=== PATIENT | male | born 1960 | race Caucasian/White ===

== ENCOUNTER 2019-03-15 10:22 | Emergency (ER) | payer BC, OTHER ==
[2019-03-15 10:59] VITALS: BP 130/70
--- NOTE | 2019-03-15 11:30 | UC ---
Throat Pain/Nasal Sai HPI - HPI Summary HPI Summary: cough x 1 week cough is harsh, productive at time with yellow sputum + nasal congest, pnd, x 2 week with sore throat sinus pain and pressure no fever, no chills , no body aches - History of Current Complaint Chief Complaint: UCGeneralIllness Stated Complaint: CHEST CONGESTION Time Seen by Provider: 03/15/19 11:18 Hx Obtained From: Patient Onset/Duration: Gradual Onset, Lasting Weeks - 2, Still Present Severity: Moderate Pain Intensity: 0 Cough: Productive Associated Signs & Symptoms: Positive: Sinus Discomfort, Nasal Discharge. Negative: Wheezing, Hoarseness, Fever, Vomiting, Rash - Allergies/Home Medications Allergies/Adverse Reactions: Allergies Allergy/AdvReac Type Severity Reaction Status Date / Time codeine Allergy Abdominal Verified 03/15/19 11:00 Pain Penicillins Allergy Unknown Verified 03/15/19 10:59 Reaction Details Home Medications: Home Medications Acetaminophen [Acetaminophen Extra Strength] 500 mg PO Q4HR PRN 03/15/19 [ History Confirmed 03/15/19] Aspirin TAB* [Aspirin 325 MG TAB*] 325 mg PO DAILY 03/15/19 [History Confirmed 03/15/19] Cholecalciferol (Vitamin D3) [Vitamin D3] 2,000 unit PO DAILY 03/15/19 [History Confirmed 03/15/19] Hydrochlorothiazide TAB* [Hydrodiuril TAB*] 25 mg PO DAILY 03/15/19 [History Confirmed 03/15/19] Lisinopril 40 mg PO DAILY 03/15/19 [History Confirmed 03/15/19] Multivitamin [Multivitamins] 1 cap PO DAILY 03/15/19 [History Confirmed 03/15/19 ] Pantoprazole Sodium 40 mg PO DAILY 03/15/19 [History Confirmed 03/15/19] Propafenone HCl 150 mg PO DAILY 03/15/19 [History Confirmed 03/15/19] Tramadol HCl [Ultram] 50 mg PO Q6HR PRN 03/15/19 [History Confirmed 03/15/19] dilTIAZem HCl [Diltiazem HCl ER] 240 mg PO DAILY 03/15/19 [History Confirmed 11/02] PMH/Surg Hx/FS Hx/Imm Hx Cardiovascular History: Hypertension, Atrial Fibrillation - Surgical History Surgical History: Yes Surgery Procedure, Year, and Place: left knee partial relacement, gallbladder removal, 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, Tonsilectomy as a child - Family History Known Family History: Positive: Hypertension - Social History Alcohol Use: Weekly Substance Use Type: None Smoking Status (MU): Never Smoked Tobacco Have You Smoked in the Last Year: No Review of Systems All Other Systems Reviewed And Are Negative: Yes Constitutional: Positive: Negative Skin: Positive: Negative Eyes: Positive: Negative ENT: Positive: Sore Throat, Nasal Discharge, Sinus Congestion, Sinus Pain/ Tenderness Respiratory: Positive: Cough Cardiovascular: Positive: Negative Is Patient Immunocompromised?: No Physical Exam Triage Information Reviewed: Yes Appearance: Well-Appearing, No Pain Distress, Well-Nourished Vital Signs: Initial Vital Signs Temp 98.1 F 03/15/19 10:54 Pulse 70 03/15/19 10:54 Resp 16 03/15/19 10:54 BP 130/70 03/15/19 10:54 Pulse Ox 97 03/15/19 10:54 Vital Signs Reviewed: Yes Eye Exam: Normal Eyes: Positive: Conjunctiva Clear ENT: Positive: Normal ENT inspection, Hearing grossly normal, Pharynx normal, Pharyngeal erythema Neck: Positive: Supple, Nontender, No Lymphadenopathy Respiratory: Positive: Chest non-tender, Lungs clear, Normal breath sounds Cardiovascular: Positive: RRR, No Murmur, Pulses Normal Abdominal Exam: Normal Skin Exam: Normal Throat Pain/Nasal Course/Dx - Differential Dx/Diagnosis Provider Diagnosis: Acute maxillary sinusitis, Bronchitis Discharge - Sign-Out/Discharge Documenting (check all that apply): Patient Departure All imaging exams completed and their final reports reviewed: No Studies - Discharge Plan Condition: Stable Disposition: HOME Prescriptions: Albuterol HFA INHALER* [Ventolin HFA Inhaler*] 2 puff INH Q6H PRN #1 mdi PRN Reason: Wheezing Benzonatate CAP* [Tessalon 100 MG CAP*] 100 mg PO TID PRN #21 cap PRN Reason: Cough DOXYcycline CAP(*) [DOXYcycline 100MG CAP(*)] 100 mg PO BID #20 cap Patient Education Materials: Sinusitis (ED), Acute Bronchitis (ED) Referrals: No Primary Care Phys,NOPCP [Primary Care Provider] - 7 Days - Billing Disposition and Condition Condition: STABLE Disposition: Home
== END 2019-03-15 11:35 | disposition home or self-care (01) ==
LOC: UCCORT 10:22
DX: J01.00 Acute maxillary sinusitis, unspecified (principal); J40 Bronchitis, not specified as acute or chronic; Z88.0 Allergy status to penicillin; I10 Essential (primary) hypertension; I48.91 Unspecified atrial fibrillation
CPT/HCPCS: 99212; G0463